=== PATIENT | male | born 1970 | race Caucasian/White ===

== ENCOUNTER 2021-12-03 14:26 | Emergency (ER) | payer BC ==
[2021-12-03] MEDS ORDERED: Ketorolac Tromethamine 30 MG/ML VIAL ONE ×2 (15:45→15:51)
[2021-12-03] MEDS ORDERED: Dexamethasone 10 MG/ML VIAL ONE (15:47)
== END 2021-12-03 17:12 | disposition home or self-care (01) ==
LOC: ERS 14:26
DX: M54.50 Low back pain, unspecified (principal); F17.220 Nicotine dependence, chewing tobacco, uncomplicated; Z98.890 Other specified postprocedural states
CPT/HCPCS: 96372; 99283; J1100; J1885

== ENCOUNTER 2021-12-16 23:18 | Emergency (ER) | payer BC ==
[2021-12-16] MEDS ORDERED: Diazepam 10 MG/2 ML SYRINGE ONE (23:50)
[2021-12-16] MEDS ORDERED: Ketorolac Tromethamine 30 MG/ML VIAL ONE (23:51)
[2021-12-17] MEDS ORDERED: Fentanyl 100 MCG/2 ML VIAL ONE (01:12)
== END 2021-12-17 01:23 | disposition home or self-care (01) ==
LOC: ERS 23:18
DX: S39.012A Strain of muscle, fascia and tendon of lower back, initial encounter (principal); F17.220 Nicotine dependence, chewing tobacco, uncomplicated; X50.9XXA Other and unspecified overexertion or strenuous movements or postures, initial encounter; Z79.899 Other long term (current) drug therapy
CPT/HCPCS: 74176; 96374; 96375; J1885; J3010; J3360

== ENCOUNTER 2021-12-18 12:05 | Outpatient (CLI) | payer BC | END 2021-12-18 12:06 | disposition home or self-care (01) | LOC: BICMRI 12:05 | PROVIDERS: ATTEND Orthopaedic Surgery | DX: M47.26 Other spondylosis with radiculopathy, lumbar region (principal); M47.27 Other spondylosis with radiculopathy, lumbosacral region | CPT/HCPCS: 72148 ==